=== PATIENT | male | born 1995 | race Caucasian/White ===

== ENCOUNTER 2022-05-19 21:21 | Observation (INO) | payer SELFPAY ==
[~2022-05-19] VITALS: Ht 177.8 cm; Wt 81.7 kg
== END 2022-05-20 05:09 | disposition home or self-care (01) ==
LOC: ER 21:21 → EOR 21:22
PROVIDERS: ADMIT Emergency Medicine
DX: F10.129 Alcohol abuse with intoxication, unspecified (principal); F32.A Depression, unspecified
CPT/HCPCS: 99285; G0378

== ENCOUNTER → 2025-06-07 | Outpatient (CLI) | payer OTHER | LOC: LAB SHORT 08:12 → LAB 08:12 | DX: B07.9 Viral wart, unspecified (principal) | CPT/HCPCS: 88305; 88312 ==